=== PATIENT | female | born 1925 | race Asian ===

== ENCOUNTER 2016-05-21 01:34 | Outpatient (CLI) | payer OTHER ==
[~2016-05-21 01:34] MED LIST: AMLO2.5T PO; ASPI325T40 PO; BISOPROL FUM5 MG PO; CEFD300C2 PO; FURO20TA67 PO; HYDR12.54 PO; LIPITOR80 MG PO; PROTONIX20 MG PO; TRAMADOL HCL100 M1 OR
[2016-05-21] MEDS ORDERED: NEXIUM40 M1 PO ×2 (01:51)
[2016-05-21] MEDS ORDERED: TIROSINT88 MCG PO ×2 (01:53)
[2016-05-21] MEDS ORDERED: ALPR0.2566 PO ×2 (01:53)
== END 2016-05-21 01:38 | disposition short-term general hospital (02) ==
LOC: AMB 01:34
DX: R11.2 Nausea with vomiting, unspecified (principal)
CPT/HCPCS: A0425; A0429

== ENCOUNTER 2016-05-21 01:40 | Emergency (ER) | payer OTHER ==
[~2016-05-21] VITALS: Ht 160 cm; Wt 75.8 kg
[2016-05-21] MEDS ORDERED: NEXIUM40 M1 PO (01:51)
[2016-05-21] MEDS ORDERED: ALPR0.2566 PO (01:53)
[2016-05-21] MEDS ORDERED: TIROSINT88 MCG PO (01:53)
[2016-05-21 07:03] VITALS: BP 150/64; TEMP 98.8
[2016-05-29] MEDS ORDERED: MECLIZINE12.5 MG PO (08:21)
== END 2016-05-21 07:05 | disposition home or self-care (01) ==
LOC: ED 01:40
DX: R42 Dizziness and giddiness (principal); R11.2 Nausea with vomiting, unspecified; I45.19 Other right bundle-branch block
CPT/HCPCS: 93005; 96372; 99283; J2405

== ENCOUNTER 2016-05-28 16:08 | Inpatient (IN) | payer OTHER ==
[~2016-05-28] VITALS: Ht 160 cm; Wt 75.8 kg
[~2016-05-28 16:08] MED LIST changes: +ALPR0.2566 PO; +NEXIUM40 M1 PO; +TIROSINT88 MCG PO
[2016-05-28 16:28] VITALS: BP 133/75; TEMP 98.1
[2016-05-28 18:30] LABS: PLATELET COUNT 266 K/uL (152-353)
[2016-05-28 18:52] LABS: POTASSIUM 4.5 mmol/L (3.6-5.2)
[2016-05-28 22:49] VITALS: BP 155/76; TEMP 98.4
[2016-05-29 04:00] VITALS: BP 123/49; TEMP 98.2
[2016-05-29 08:00] VITALS: BP 150/73; TEMP 98.2
[2016-05-29] MEDS ORDERED: MECLIZINE12.5 MG PO ×2 (08:21)
[2016-05-29 09:50] LABS: POTASSIUM 3.5 mmol/L (3.6-5.2)
[2016-05-29 09:56] LABS: PLATELET COUNT 242 K/uL (152-353)
[2016-05-29 11:52] VITALS: BP 128/57; TEMP 97.9
[2016-05-29 16:12] VITALS: BP 153/43; TEMP 97.6
[2016-05-29 20:18] VITALS: BP 144/66; TEMP 98.3
[2016-05-30] VITALS: BP 98/62; TEMP 97.4
[2016-05-30 04:00] VITALS: BP 108/62; TEMP 97.8
[2016-05-30 05:33] LABS: PLATELET COUNT 233 K/uL (152-353)
[2016-05-30 05:47] LABS: POTASSIUM 3.2 mmol/L (3.6-5.2)
[2016-05-30 08:11] VITALS: BP 102/77; TEMP 97.8
[2016-05-30 11:55] VITALS: BP 137/64; TEMP 97.6
[2016-05-30 16:08] VITALS: BP 154/83; TEMP 98
[2016-05-30 21:06] VITALS: BP 147/63; TEMP 98.3
[2016-05-31] VITALS: BP 142/58; TEMP 97.9
[2016-05-31 04:00] VITALS: BP 144/64; TEMP 98.2
[2016-05-31 06:38] LABS: PLATELET COUNT 207 K/uL (152-353)
[2016-05-31 06:47] LABS: POTASSIUM 3.3 mmol/L (3.6-5.2)
[2016-05-31 08:00] VITALS: BP 135/65; TEMP 97.9
[2016-05-31 12:00] VITALS: BP 151/74; TEMP 98.9
[2016-05-31 16:00] VITALS: BP 135/66; TEMP 98.2
[2016-05-31 20:12] VITALS: BP 157/39; TEMP 98.1
[2016-06-01 00:21] VITALS: BP 168/60; TEMP 98.6
[2016-06-01 04:00] VITALS: BP 126/54; TEMP 98.2
[2016-06-01 05:08] LABS: PLATELET COUNT 205 K/uL (152-353)
[2016-06-01 05:32] LABS: POTASSIUM 3.2 mmol/L (3.6-5.2)
[2016-06-01 08:00] VITALS: BP 151/64; TEMP 98.1
[2016-06-01 12:00] VITALS: BP 148/62; TEMP 97.8
[2016-06-01 16:00] VITALS: BP 142/64; TEMP 98.9
[2016-06-01 20:07] VITALS: BP 166/76; TEMP 98.2
[2016-06-02 00:04] VITALS: BP 158/67; TEMP 98.6
[2016-06-02 05:00] VITALS: BP 127/58; TEMP 98.8
[2016-06-02 05:36] LABS: PLATELET COUNT 220 K/uL (152-353)
[2016-06-02 06:38] LABS: POTASSIUM 3.2 mmol/L (3.6-5.2)
[2016-06-02 08:00] VITALS: BP 153/73; TEMP 98.8
[2016-06-02 12:00] VITALS: BP 153/57; TEMP 98.4
== END 2016-06-02 14:20 | disposition home or self-care (01) | DRG 392 ==
LOC: ED 16:08 → MED/SURG 22:00
PROVIDERS: Emergency Medicine
PROC: 05H533Z Insertion of Infusion Device into Right Subclavian Vein, Percutaneous Approach (ICD-10-PCS; principal; 2016-05-29)
DX: K57.32 Diverticulitis of large intestine without perforation or abscess without bleeding (principal); E87.1 Hypo-osmolality and hyponatremia; E83.42 Hypomagnesemia; R79.89 Other specified abnormal findings of blood chemistry; I10 Essential (primary) hypertension; K21.9 Gastro-esophageal reflux disease without esophagitis; R11.0 Nausea; Z86.73 Personal history of transient ischemic attack (TIA), and cerebral infarction without residual deficits; M15.8 Other polyosteoarthritis
CPT/HCPCS: 36415; 36571; 36591; 80053; 82150; 83690; 83735; 83880; 85027; 99284; C1751; J1650; J1940; J2405; J3490

== ENCOUNTER 2016-06-20 12:29 | Outpatient (CLI) | payer OTHER ==
[~2016-06-20 12:29] MED LIST changes: +MECLIZINE12.5 MG PO
[2016-06-20 14:00] LABS: PLATELET COUNT 373 K/uL (152-353)
== END 2016-06-20 19:09 | disposition home or self-care (01) ==
LOC: LABW 12:29 → RESP 12:29 → LABW 19:09
PROVIDERS: Nurse Practitioner
DX: I12.9 Hypertensive chronic kidney disease with stage 1 through stage 4 chronic kidney disease, or unspecified chronic kidney disease (principal); N18.4 Chronic kidney disease, stage 4 (severe); D63.1 Anemia in chronic kidney disease; D50.8 Other iron deficiency anemias; R06.02 Shortness of breath
CPT/HCPCS: 36415; 80053; 81000; 82570; 82607; 82728; 83540; 83550; 83735; 84100; 84155; 85027; 93306

== ENCOUNTER 2016-07-25 19:36 | Inpatient (IN) | payer OTHER ==
[~2016-07-25] VITALS: Ht 160 cm; Wt 79.6 kg
[2016-07-25 19:48] VITALS: BP 153/91; TEMP 98.6
[2016-07-25 20:32] LABS: PLATELET COUNT 327 K/uL (152-353)
[2016-07-25 20:34] LABS: POTASSIUM 3.9 mmol/L (3.6-5.2)
[2016-07-26] VITALS (17 sets, daily range): BP systolic 105–160; BP diastolic 66–87; TEMP 98–98.9; Ht 160 cm; Wt 79.6 kg
[2016-07-26 11:02] LABS: PLATELET COUNT 312 K/uL (152-353)
[2016-07-26 17:08] LABS: POTASSIUM 4.2 mmol/L (3.6-5.2)
[2016-07-27] VITALS (37 sets, daily range): BP systolic 81–121; BP diastolic 48–89; TEMP 97.2–98.2
[2016-07-27 06:32] LABS: PLATELET COUNT 329 K/uL (152-353)
[2016-07-27 06:45] LABS: POTASSIUM 4.9 mmol/L (3.6-5.2)
[2016-07-28] VITALS (49 sets, daily range): BP systolic 93–994; BP diastolic 6–92; TEMP 97.3–98.6
[2016-07-28 06:36] LABS: PLATELET COUNT 336 K/uL (152-353)
[2016-07-28 06:52] LABS: POTASSIUM 5.1 mmol/L (3.6-5.2)
[2016-07-28 21:32] LABS: PLATELET COUNT 300 K/uL (152-353)
[2016-07-28 21:47] LABS: POTASSIUM 4.5 mmol/L (3.6-5.2)
[2016-07-29] VITALS (34 sets, daily range): BP systolic 114–146; BP diastolic 51–97; TEMP 97–98.5
[2016-07-29 06:31] LABS: PLATELET COUNT 284 K/uL (152-353)
[2016-07-29 06:53] LABS: POTASSIUM 3.6 mmol/L (3.6-5.2)
== END 2016-07-29 20:00 | disposition short-term general hospital (02) | DRG 291 ==
LOC: ED 19:36 → MED/SURG 21:10 → ICU 07-26 18:50
PROVIDERS: Emergency Medicine; ADMIT Family Medicine
PROC: 02HV33Z Insertion of Infusion Device into Superior Vena Cava, Percutaneous Approach (ICD-10-PCS; principal; 2016-07-26)
DX: I13.2 Hypertensive heart and chronic kidney disease with heart failure and with stage 5 chronic kidney disease, or end stage renal disease (principal); I50.23 Acute on chronic systolic (congestive) heart failure; N18.5 Chronic kidney disease, stage 5; E87.3 Alkalosis; N17.8 Other acute kidney failure; N39.0 Urinary tract infection, site not specified; I48.91 Unspecified atrial fibrillation; E03.8 Other specified hypothyroidism; Z86.73 Personal history of transient ischemic attack (TIA), and cerebral infarction without residual deficits; E88.09 Other disorders of plasma-protein metabolism, not elsewhere classified; D53.9 Nutritional anemia, unspecified; R31.9 Hematuria, unspecified
CPT/HCPCS: 36415; 36430; 36591; 36600; 80053; 81000; 82550; 82570; 82607; 82728; 82805; 82962; 83540; 83550; 83735; 83880; 84300; 84443; 84466; 84484; 84540; 85027; 85610; 85730; 87040; 90732; 93005; 94002; 94003; 94640; 94760; 96372; 99283; C1768; J0330; J0696; J1644; J1650; J1940; J2250; J2704; J2930; J3475; J3490; J7060; P9047

== ENCOUNTER 2016-08-29 11:15 | Outpatient (CLI) | payer OTHER | END 2016-08-29 11:20 | disposition short-term general hospital (02) | LOC: AMB 11:15 | DX: R41.82 Altered mental status, unspecified (principal); Z86.73 Personal history of transient ischemic attack (TIA), and cerebral infarction without residual deficits | CPT/HCPCS: A0425; A0427 ==

== ENCOUNTER 2016-08-29 11:22 | Inpatient (IN) | payer OTHER ==
[~2016-08-29] VITALS: Ht 157.5 cm; Wt 74.1 kg
[2016-08-29] VITALS (14 sets, daily range): BP systolic 120–166; BP diastolic 59–85; TEMP 97.8–98.7; Ht 157.5 cm; Wt 74.1 kg
[2016-08-29 14:47] LABS: PLATELET COUNT 327 K/uL (152-353)
[2016-08-29 15:26] LABS: POTASSIUM 4.1 mmol/L (3.6-5.2); SODIUM 141 mmol/L (136-145)
--- NOTE | 2016-08-29 17:20 | NUR ---
Pt. ADMITTED TO ROOM [address] RODR[address]UEZ. FAMILY FOUND Pt. TODAY AT HOME. NG TUBE INTACT. WEAKNESS L SIDE OF BODY. EYES SHIFTED TO THE LEFT.
[2016-08-30] VITALS (13 sets, daily range): BP systolic 118–143; BP diastolic 59–81; TEMP 98.2–100.5
[2016-08-30 12:01] LABS: PLATELET COUNT 302 K/uL (152-353)
[2016-08-30 12:06] LABS: POTASSIUM 3.5 mmol/L (3.6-5.2)
--- NOTE | 2016-08-30 16:30 | NUR ---
DR. RODRIGUEZ HERE TO SEE PATIENT. SPOKE WITH THE FAMILY IN DETAIL ABOUT PATIENT'S STATUS AND CARE. PATIENT WILL NOT NE TRANSFERRED AT THIS TIME BECAUSE NO DOCTOR AGREED TO ACCEPT HER. DECISION MADE TO MOVE PATIENT TO ICU FOR CLOSER OBSERVATION.
--- NOTE | 2016-08-30 17:55 | NUR ---
PATIENT MOVED TO ICU. REPORT GIVEN TO JAYSHREE KEYES RN.
--- NOTE | 2016-08-30 18:00 | NUR ---
PT TO ICU BED 2 VIA BED FROM MED SURG. 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 NGT L NARE CLAMPED. MONTILLA TO BSD WITH CL YELLOW URINE. IV NS WITH MVI INFUSING AT 80CC/HR WITHOUT PROBLEMS INTO R UCW PORT.
--- NOTE | 2016-08-30 19:00 | NUR ---
REPORT TO PM STAFF.
--- NOTE | 2016-08-30 20:17 | NUR ---
PT O2 SAT 83%. RESPIRATIONS 15. CRACKLES TO CELESTE UPPER LUNG OTERO. BP 125/64 PULSE 121. RT NOTIFIED.
--- NOTE | 2016-08-30 20:20 | NUR ---
RT AT BEDSIDE.
--- NOTE | 2016-08-30 20:25 | NUR ---
DR RODRIGUEZ NOTIFIED. NEW ORDERS RECEIVED.
--- NOTE | 2016-08-30 20:36 | NUR ---
NG TUBE REMOVED. PT TOLERATED WELL.
--- NOTE | 2016-08-30 20:40 | NUR ---
BIPAP PLACED ON PT BY RT.O2 SAT 91%. BP 132/72.P 124. RESP 12. NO DISTRESS NOTED. PT AROUSES TO VERBAL STIMULI.
--- NOTE | 2016-08-30 21:13 | NUR ---
ABG OBTAINED. PT'S SAT IS 91 PERCENT.
--- NOTE | 2016-08-30 22:57 | NUR ---
DR. RODRIGUEZ CHECKED ON PT, SATINDER FAGAN REPORTED PT'S STATUS.URINE OUTPUT REPORTED AND PT VITAL SIGNS. NEW ORDERS GIVEN.
--- NOTE | 2016-08-30 23:36 | NUR ---
CM SHOWING IRREGULAR RATE AND RHYTHM NOTED. HR 126. MONTILLA CATHETAR WITH 400 CC OF YELLOW URINE NOTED. PT WEARING BIPAP.02 SATS 92 PERCENT. FAMILY IN TO VISIT OFTEN. PT QUIET WITH NO DISTRESS NOTED.
[2016-08-31] VITALS (24 sets, daily range): BP systolic 103–144; BP diastolic 56–84; TEMP 97.8–99
--- NOTE | 2016-08-31 01:52 | NUR ---
PT WAS TURNED AND REPOSITIONED. REPOSITIONED TO HER LEFT SIDE.
[2016-08-31 05:33] LABS: PLATELET COUNT 296 K/uL (152-353)
[2016-08-31 06:13] LABS: POTASSIUM 3.5 mmol/L (3.6-5.2)
--- NOTE | 2016-08-31 07:00 | NUR ---
REPORT FROM PM STAFF. PT RESTING WITH EYES CLOSED. PT ON 50% VENTIMASK.
--- NOTE | 2016-08-31 09:00 | NUR ---
PT AWAKE AM CARE,PT DOESNT RECOGNIZE R SIDE, DOESNT LOOK TO R SIDE,R SIDE FLACCID.APPEARS TO BE STARTLED WHEN TURNED TO R SIDE.
--- NOTE | 2016-08-31 11:49 | NUR ---
DR RODRIGUEZ CALLED TO CK ON PT.REPORTED LABS.NEW ORDERS.
--- NOTE | 2016-08-31 13:49 | NUR ---
16FR NGT INSERTED L NARE X 2 ATTEMPTS PER VIVIAN MAURO RN WITH RETURN OF BLOODY DRAINAGE. RADIOLOGY NOTIFIED OF A NEED FOR A CXR FOR PLACEMENT.
--- NOTE | 2016-08-31 14:00 | NUR ---
PT WITH 100% O2 SAT CONSISTENTLY.CHANGED TO 4L/NC. O2 SATS CONSISTENT AT 99-100%.
--- NOTE | 2016-08-31 15:30 | NUR ---
PT CHANGED TO O2 AT 3L/NC.O2 SATS 97-98%.
--- NOTE | 2016-08-31 16:00 | NUR ---
RADIOLOGY HERE FOR CXR.
--- NOTE | 2016-08-31 16:25 | NUR ---
OK TO USE NGT PER CXR.
--- NOTE | 2016-08-31 17:00 | NUR ---
PT FED PER NGT 1/2 CAN ENSURE & FLUSHED WITH H2O 60CC BEFORE & AFTER & PO MEDS GIVEN PER NGT.PT WITH BS,ABD SOFT.
--- NOTE | 2016-08-31 22:24 | NUR ---
Dr. Simon at bedside. orders received. pt had large large bowel movement and void in bed. linens changed.
--- NOTE | 2016-08-31 23:13 | NUR ---
TORADOL 30MG GIVEN IV ORDERED NOW PER DR. RODRIGUEZ. GIVEN FOR HEADACHE.
--- NOTE | 2016-08-31 23:45 | NUR ---
PT SHAKES HEAD YES WHEN ASKED IF TORADOL RELIEVED HEADACHE.
[2016-09-01] VITALS (21 sets, daily range): BP systolic 114–144; BP diastolic 50–72; TEMP 97.6–98.3
--- NOTE | 2016-09-01 00:15 | NUR ---
PT WITHOUT RESIDUAL. 30CC'S H20 FLUSH GIVEN PER NG TUBE. 1 CAN 2 SAKINA GIVEN. FOLLOWED BY 30CC H2O FLUSH. PT IN HIGH REIS'S
--- NOTE | 2016-09-01 00:30 | NUR ---
PT COUGHING UP MUCOUS. CAMMY SUCTION AT BEDSIDE. PT SUCTIONED SMALL AMOUNT.
--- NOTE | 2016-09-01 01:54 | NUR ---
PT RESTING WITH EYES CLOSED.
--- NOTE | 2016-09-01 02:47 | NUR ---
PT RESTING QUIETLY AT PRESENT. RESP EVEN AND UNLABORED.
--- NOTE | 2016-09-01 04:44 | NUR ---
PT RESTING AT PRESENT.
[2016-09-01 05:55] LABS: PLATELET COUNT 285 K/uL (152-353)
[2016-09-01 06:16] LABS: POTASSIUM 4.3 mmol/L (3.6-5.2)
--- NOTE | 2016-09-01 09:00 | NUR ---
MEDICAL RECEPTION AT
--- NOTE | 2016-09-01 10:00 | NUR ---
SCD'S IN PLACE, CELESTE FEET FLOATING
--- NOTE | 2016-09-01 16:00 | NUR ---
RHONCHI NOTED, PT INSTRUCTED TO COUGH, PT SHOOK HER HEAD NO
--- NOTE | 2016-09-01 17:15 | NUR ---
BATH GIVEN, LINENS CHANGED
--- NOTE | 2016-09-01 19:00 | NUR ---
DR RODRIGUEZ AT BS
[2016-09-02] VITALS (25 sets, daily range): BP systolic 112–142; BP diastolic 46–93; TEMP 97.5–98.6
[2016-09-02 06:13] LABS: PLATELET COUNT 274 K/uL (152-353)
[2016-09-02 06:44] LABS: POTASSIUM 4.5 mmol/L (3.6-5.2)
--- NOTE | 2016-09-02 07:03 | NUR ---
09/02/16 AT 0200 22G IV LOCK TO L HAND FLUSHED EASILY WITH 10ML NS.
--- NOTE | 2016-09-02 07:30 | NUR ---
AM ASSESSMENT DONE.
--- NOTE | 2016-09-02 08:30 | NUR ---
MOUTH CARE DONE.
--- NOTE | 2016-09-02 09:00 | NUR ---
CHECKED RESIDUAL IN NG TUBE. NO RESIDUAL. FED PT 2 SAKINA WITH FLUSH. ADVANCED NG TUBE AN INCH WILL OBTAIN CHEST XRAY.
--- NOTE | 2016-09-02 09:18 | NUR ---
PT RECEIVING SMART VEST THERAPY.
--- NOTE | 2016-09-02 10:45 | NUR ---
DR. RODRIGUEZ CALLED TO CHECK ON PT. FAMILY AT BEDSIDE.
--- NOTE | 2016-09-02 12:03 | NUR ---
RT DEEP SUCTIONED PATIENT WITH A 12F SUCTION CATH KIT. SMALL AMOUNT OF WHITE SPUTUM OBTAINED. DUSTIN WELL.
--- NOTE | 2016-09-02 13:35 | NUR ---
PT RESTING QUIETLY WITH EYES CLOSED.
--- NOTE | 2016-09-02 15:00 | NUR ---
CHECKED PT FOR IMPACTION. PT'S LAST BM 08/29/16. NO STOOL FELT IN RECTUM.
--- NOTE | 2016-09-02 17:24 | NUR ---
DR. RODRIGUEZ HERE TO SEE PT. DR. RODRIGUEZ SPEAKING WITH FAMILY.
--- NOTE | 2016-09-02 17:30 | NUR ---
DR RODRIGUEZ SPOKE W/PABLO, PTS NEICE REGARDING REHAB AT [facility], PEGTUBE PLACEMENT FOR FEEDING, POSSIBLEY TEMP TO [facility] IF NEEDED. FAMILY INSTURCTED TO CALL ICU BACK TONIGHT WITH DECISION.
--- NOTE | 2016-09-02 19:15 | NUR ---
AT PT BEDSIDE. PT ALERT TO VOICE. WEAKNESS TO RIGHT SIDE WITH MINIMAL OXYGEN THERAPIST TO UPPER AND MINIMAL MOVEMENT OF LOWER. PT HAS O2 @ 3LPM NC, NG TUBE IN PLACE WITHOUT SUCTION APPLIED, MONTILLA CATH WITH CLEAR YELLOW DRAINAGE NOTED, TWO SIDE RAILS UP, BED IN LOW POSITION, CENTRAL LINE TO RIGHT NECK TKO, IV 22GA LEFT HAND TKO, SCD'S ON LEGS, NO ACUTE DISTRESS NOTED.
--- NOTE | 2016-09-02 19:50 | NUR ---
FAMILY MEMBER( PABLO MARQUEZ) WHO IS THE [employer] F[employer] IS NOW AT BEDSIDE. FAMILY MEMBER ADVISED CONSENT FOR PEG TUBE PLACEMENT AND RESIDENTIAL PLACEMNT FOR REHAB FOLLOWING HOSPITAL STAY.
--- NOTE | 2016-09-02 20:01 | NUR ---
DR RODRIGUEZ WAS NOTIFIED BY PHONE OF THE [facility].
[2016-09-03] VITALS (26 sets, daily range): BP systolic 112–157; BP diastolic 47–67; TEMP 97.6–98.8
--- NOTE | 2016-09-03 01:48 | NUR ---
PT ASLEEP AND RESTING. NO ACUTE DISTRESS NOTED. WILL CONTINUE TO MONITOR.
--- NOTE | 2016-09-03 05:11 | NUR ---
PT IS ASLEEP AND WAKES TO VOICE DURRING ASSESSMENT OR INTERVENTIONS. NO ACUTE DISTRESS NOTED. WILL CONTINUE TO MONITOR.
[2016-09-03 05:57] LABS: PLATELET COUNT 269 K/uL (152-353)
--- NOTE | 2016-09-03 07:00 | NUR ---
REPORT FROM PM STAFF. PT RESTING IN LOW FOWLERS,EYES OPEN,REACHES FOR YOUR HAND WHEN YOU WALK UP,TRIES TO SMILE.NGT INTACT & CLAMPED R NARE. MONTILLA TO BSD WITH CL YELLOW URINE.
[2016-09-03 07:43] LABS: POTASSIUM 4.6 mmol/L (3.6-5.2)
--- NOTE | 2016-09-03 09:35 | NUR ---
DR MACK NOTIFIED OF NEED FOR PEG TUBE INSERTION. DR MACK TO TALK WITH DR RODRIGUEZ.
--- NOTE | 2016-09-03 10:10 | NUR ---
DR MACK IN TO SEE PT.
--- NOTE | 2016-09-03 10:23 | NUR ---
GISELA Love AT BS,CONSENT FOR INSERTION OF GASTRIC TUBE.
--- NOTE | 2016-09-03 10:42 | NUR ---
PHONE CALL TO DR RODRIGUEZ,REPORTED WHAT KIND OF PEG THAT WAS AVAILABLE FOR INSERTION. REPORTED LABS. OK TO USE PEG TUBE THATS AVAILABLE. NEW ORDERS. RICCO IN OR TO TELL DR MACK THAT ITS OK TO USE TUBE THATS AVAILABLE.
--- NOTE | 2016-09-03 12:30 | NUR ---
PT RESTING WITH EYES CLOSED,O2 SATS 1005 on o2 at 2l/nc.
--- NOTE | 2016-09-03 13:30 | NUR ---
MIRANDA LYONS RN OR CALLED TO CK ON PT'S STATUS. CONFIRMED WITH RICCO JAIME RN, DR MACK AWARE THAT DR RODRIGUEZ IS OK WITH WHATEVER KIND OF GT THAT HE HAS.
--- NOTE | 2016-09-03 15:42 | NUR ---
FAMILY IN TO VISIT,PT SLEEPING SINCE BATH.
--- NOTE | 2016-09-03 16:00 | NUR ---
SPEECH IN TO SEE PT.
--- NOTE | 2016-09-03 16:19 | NUR ---
PT TO OR STABLE VIA BED FOR INSERTION OF GASTRIC TUBE.
--- NOTE | 2016-09-03 16:45 | NUR ---
REPORTED PT TO SURGERY TO BERENICE HIGGINS.
--- NOTE | 2016-09-03 17:26 | NUR ---
PT RETURNED FROM OR TO ICU2 VIA BED. PT WITH EYES CLOSED,O2 SAT 100% ON O2 AAAAAAT 3L/NC. IV 1/2 NS INFUSING @ 100 ML/HR INTO R SC TLC WITHOUT PROBLEMS.BP 138/50 HR 57,RR 14. SCD'S APPLIED,PT WITH GURGLY COUGH,SUCTIONED THICK WHITEISH PHLEGM FROM BACK OF THROAT.
--- NOTE | 2016-09-03 18:25 | NUR ---
DR RODRIGUEZ IN TO SEE PT. PT REMAINS SLEEPY,WILL ROUSE TO VERBAL & PHYSICAL STIMULI.
--- NOTE | 2016-09-03 18:35 | NUR ---
GASTRIC TUBE CONNECTED TO GRAVITY DRAIN. CLEAR BARRON DRAINAGE WITH SM PARTICLES OF BROWNISH RED IN TUBING.
--- NOTE | 2016-09-03 20:01 | NUR ---
Received pt resting in bed quietly. No distress noted at this time. VSS per monitor. PT drowsy from surgery. Peg tube placed today. Connected to gravity suction at this time. Central line to RIJ with NS infusing at 100ml/hr. No s/s of infiltration noted. 22g to SL at this time. SCD's in place. Assessment completed. Bed in lowest position. Call light within reach. Will continue to monitor.
--- NOTE | 2016-09-03 21:02 | NUR ---
No change in assessment at this time. No distress noted. VSS per monitor. Will continue to monitor.
--- NOTE | 2016-09-03 22:32 | NUR ---
Pt resting with eyes closed. No change is status. Will continue to monitor.
[2016-09-04] VITALS (16 sets, daily range): BP systolic 124–173; BP diastolic 45–76; TEMP 97.9–98.2
--- NOTE | 2016-09-04 01:47 | NUR ---
Medications given at this time. No change in assessment. Pt resting with eyes closed. Will continue to monitor.
--- NOTE | 2016-09-04 05:36 | NUR ---
Kirill labs drawn from central line at this time.
[2016-09-04 05:46] LABS: PLATELET COUNT 257 K/uL (152-353)
[2016-09-04 06:05] LABS: POTASSIUM 4.6 mmol/L (3.6-5.2)
--- NOTE | 2016-09-04 07:30 | NUR ---
AM ASSESSMENT DONE.
--- NOTE | 2016-09-04 09:00 | NUR ---
IV TO L HAND NOT FLUSHING. IV D/C'D WITH TIP INTACT PRESSURE DRESSING APPLIED.
--- NOTE | 2016-09-04 09:30 | NUR ---
HR 40'S-60'S. PT DOZING AT TIMES. NAD NOTED. PT HAS NO COMPLAINTS. DR. RODRIGUEZ AWARE.
--- NOTE | 2016-09-04 10:09 | NUR ---
FAMILY AT BEDSIDE.
--- NOTE | 2016-09-04 12:27 | NUR ---
FAMILY AT BEDSIDE. NAD NOTED AT THIS TIME.
--- NOTE | 2016-09-04 13:15 | NUR ---
RECEIVED NEW ORDERS FROM DR. RODRIGUEZ FOR PT TO GO TO THE FLOOR.
--- NOTE | 2016-09-04 13:48 | NUR ---
STUDENTS GIVEN PT A BATH AND CHANGING BED LINENS AND GOWN. ORAL CARE DONE AND PERICARE DONE. FED PT 2CAL VIA PEG TUBE. PT DUSTIN WELL.
--- NOTE | 2016-09-04 17:02 | NUR ---
REPORT TO ENOC MAURO RN. PT TRANSFERRED TO ROOM 1113 VIA BED IN STABLE COND.
--- NOTE | 2016-09-04 17:15 | NUR ---
PT INTO ROOM 1113 VIA BED FROM ICU WITH NAD. NO CHANGE IN PTS STATUS FROM AM ASSESSMENT. PT ALERT BUT APHASIC. FAMILY AT BS. NO COMPLAINTS AT THIS TIME
[2016-09-05] VITALS: BP 152/69; TEMP 97.5
[2016-09-05 06:26] LABS: PLATELET COUNT 296 K/uL (152-353)
[2016-09-05 08:44] VITALS: BP 150/90; TEMP 98.6
--- NOTE | 2016-09-05 13:30 | NUR ---
CALLED REPORT TO ANN MARIE SPOKE WITH GHULAM UPON GIVING REPORT REALIZED PT HAD NO BM ON RECORD. SPOKE WITH MYLA. JOSE JAIME LPN STATED THAT SHE KNEW ORDERS WERE WRITTEN FOR MEDICATION AND SOAP SUDS ENEMA UNTIL CLEAR YESTERDAY. IN PT'S ROOM DIGITAL EXAM PERFORMED RECEIVED SOFT FORMED STOOL. ENEMA GIVEN WITH HALF OF 1500ML BAG OF SOAP SUDS ENEMA LARGE FORMED STOOL OBTAINED. REPORT GIVEN TO ANN MARIE PARMAR ON .
--- NOTE | 2016-09-05 14:50 | NUR ---
R SUBCLAVIAN TLC D/C'D CATH TIP INTACT. PT TOLERATED WELL. PT TRANSFERRED VIA PATIENT BED TO ANN MARIE CEBALLOS RM 231.
== END 2016-09-05 14:50 | DRG 66 ==
LOC: ED 11:22 → MED/SURG 13:40 → ICU 08-30 17:45 → MED/SURG 09-04 17:41
PROVIDERS: Family Medicine
PROC: 0D9670Z Drainage of Stomach with Drainage Device, Via Natural or Artificial Opening (ICD-10-PCS; principal; 2016-08-29)
PROC: 02HV33Z Insertion of Infusion Device into Superior Vena Cava, Percutaneous Approach (ICD-10-PCS; 2016-08-29)
PROC: 0DH63UZ Insertion of Feeding Device into Stomach, Percutaneous Approach (ICD-10-PCS; 2016-09-03)
DX: I63.512 Cerebral infarction due to unspecified occlusion or stenosis of left middle cerebral artery (principal); I50.9 Heart failure, unspecified; J44.9 Chronic obstructive pulmonary disease, unspecified; I48.91 Unspecified atrial fibrillation; E11.9 Type 2 diabetes mellitus without complications; R13.12 Dysphagia, oropharyngeal phase; K29.60 Other gastritis without bleeding; I10 Essential (primary) hypertension; D64.89 Other specified anemias; R06.00 Dyspnea, unspecified
CPT/HCPCS: 36415; 36558; 36591; 36600; 43754; 51702; 80048; 80053; 81000; 82550; 82553; 82805; 82962; 83735; 83880; 84100; 84443; 84484; 85027; 85610; 93005; 94668; 94760; 96372; 99285; C1768; J1650; J1885; J1940; J2060; J2250; J2704; J2920; J3490

== ENCOUNTER 2016-09-05 13:31 | Inpatient (IN) | payer OTHER | END 2016-09-09 09:16 | disposition still patient (30) | LOC: PAVB 13:31 | PROVIDERS: ADMIT Family Medicine | DX: I63.512 Cerebral infarction due to unspecified occlusion or stenosis of left middle cerebral artery (principal); I50.9 Heart failure, unspecified; J44.9 Chronic obstructive pulmonary disease, unspecified; I48.91 Unspecified atrial fibrillation; E11.9 Type 2 diabetes mellitus without complications; R13.12 Dysphagia, oropharyngeal phase; K29.60 Other gastritis without bleeding | CPT/HCPCS: 87081 ==

== ENCOUNTER 2016-09-05 17:02 | Outpatient (CLI) | payer OTHER | END 2016-09-05 19:13 | disposition home or self-care (01) | LOC: LAB 17:02 | DX: Z16.24 Resistance to multiple antibiotics (principal) | CPT/HCPCS: 87081 ==

== ENCOUNTER 2016-09-09 10:23 | Inpatient (IN) | payer OTHER ==
[2016-10-02 13:25] LABS: POTASSIUM 4.6 mmol/L (3.6-5.2)
[2016-10-04 06:31] LABS: POTASSIUM 4.5 mmol/L (3.6-5.2)
== END 2016-10-10 10:15 | disposition still patient (30) ==
LOC: PAVB 10:23
PROVIDERS: ADMIT Family Medicine
DX: Z51.89 Encounter for other specified aftercare (principal)
CPT/HCPCS: 36415; 80053; 80061; 83036; 83735; 83880; 84443; 85027

== ENCOUNTER 2016-09-28 11:28 | Outpatient (CLI) | payer OTHER ==
[2016-09-28 11:46] LABS: PLATELET COUNT 376 K/uL (152-353)
[2016-09-28 13:47] LABS: POTASSIUM 4.6 mmol/L (3.6-5.2)
== END 2016-09-28 19:52 | disposition home or self-care (01) ==
LOC: LAB 11:28
PROVIDERS: Family Medicine
DX: J44.9 Chronic obstructive pulmonary disease, unspecified (principal); I48.91 Unspecified atrial fibrillation; I50.23 Acute on chronic systolic (congestive) heart failure
CPT/HCPCS: 80053; 83880; 85027

== ENCOUNTER 2016-10-10 10:22 | Inpatient (IN) | payer OTHER | END 2016-11-04 12:48 | disposition home or self-care (01) | LOC: PAVB 10:22 | PROVIDERS: ADMIT Family Medicine | DX: Z51.89 Encounter for other specified aftercare (principal) ==

== ENCOUNTER 2016-10-16 14:34 | Outpatient (CLI) | payer OTHER ==
[2016-10-16 15:08] LABS: POTASSIUM 4.2 mmol/L (3.6-5.2)
== END 2016-10-16 15:45 | disposition home or self-care (01) ==
LOC: LAB 14:34
PROVIDERS: Family Medicine
DX: I50.9 Heart failure, unspecified (principal); Z79.899 Other long term (current) drug therapy; Z51.81 Encounter for therapeutic drug level monitoring
CPT/HCPCS: 80048; 83880

== ENCOUNTER 2016-10-20 09:31 | Emergency (ER) | payer OTHER ==
[~2016-10-20] VITALS: Ht 157.5 cm; Wt 92.5 kg
[2016-10-20 09:35] VITALS: TEMP 98.2
[2016-10-20 11:47] LABS: PLATELET COUNT 263 K/uL (152-353)
[2016-10-20 12:07] LABS: POTASSIUM 4.2 mmol/L (3.6-5.2)
[2016-10-20 14:05] VITALS: BP 129/45
== END 2016-10-20 15:59 | disposition short-term general hospital (02) ==
LOC: ED 09:31
PROVIDERS: Specialist
DX: I77.89 Other specified disorders of arteries and arterioles (principal); Z86.73 Personal history of transient ischemic attack (TIA), and cerebral infarction without residual deficits; J90 Pleural effusion, not elsewhere classified
CPT/HCPCS: 36415; 36558; 36600; 80053; 82550; 82553; 82805; 83735; 83880; 84100; 84484; 85027; 99285; C1768

== ENCOUNTER 2016-10-21 14:55 | Outpatient (CLI) | payer OTHER | END 2016-10-21 16:00 | disposition home or self-care (01) | LOC: US 14:55 | DX: M79.89 Other specified soft tissue disorders (principal) ==

== ENCOUNTER 2016-10-22 09:23 | Outpatient (CLI) | payer OTHER | END 2016-10-22 10:30 | disposition home or self-care (01) | LOC: US 09:23 | DX: I77.89 Other specified disorders of arteries and arterioles (principal); Z86.73 Personal history of transient ischemic attack (TIA), and cerebral infarction without residual deficits; J90 Pleural effusion, not elsewhere classified ==